=== PATIENT | female | born 2000 | race Two or more races ===

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

== ENCOUNTER 2024-06-08 12:29 | Emergency (ER) | payer OTHER ==
[~2024-06-08] VITALS: Ht 162.6 cm; Wt 72.6 kg
[2024-06-08 12:56] VITALS: BP 111/77; O2SAT 99
[2024-06-08] MEDS ORDERED: 0.9 % SODIUM CHLORIDE 1,000 ML IV STA (13:38)
[2024-06-08] MEDS ORDERED: ACETAMINOPHEN 500 MG GEL..CAP PO ONE (13:45)
[2024-06-08 14:12] LABS: HEMATOCRIT 34.9 % (36.0-45.00); HEMOGLOBIN 12.2 g/dL (12.0-15.00); MEAN CORPUSCULAR HEMOGLOBIN 28.3 pg (27.00-32.0); MEAN CORPUSCULAR HGB CONC 34.9 g/dl (32.0-36.0); PLATELET COUNT 240 K/uL (150-450); RED BLOOD COUNT 4.32 M/uL (4.00-6.00); RED CELL DISTRIBUTION WIDTH 13.9 % (11.5-14.5)
[2024-06-08] MEDS ORDERED: OSELTAMIVIR PHOSPHATE 75 MG CAPSULE PO ONE (15:15)
== END 2024-06-08 15:55 | disposition home or self-care (01) ==
LOC: ER 12:29
PROVIDERS: Emergency Medicine
DX: O98.511 Other viral diseases complicating pregnancy, first trimester (principal); Z3A.12 12 weeks gestation of pregnancy; J10.1 Influenza due to other identified influenza virus with other respiratory manifestations; Z20.822 Contact with and (suspected) exposure to COVID-19